=== PATIENT | female | born 1970 | race Caucasian/White ===

== ENCOUNTER 2024-12-22 19:22 | Emergency (ER) | payer MEDICAID, SELFPAY ==
[2024-12-22 19:30] VITALS: BP 168/109; PULSE 91; RESP 16; TEMP 36.8; O2SAT 96; BMI 32.3
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
[2024-12-22 19:53] VITALS: BP 172/115; PULSE 91; RESP 16; TEMP 36.8; O2SAT 97
--- NOTE | 2024-12-22 20:39 | PC.NURSE ---
Patient taken to CT via gurney.
[2024-12-22 21:12] VITALS: BP 171/102; PULSE 92; RESP 16; TEMP 36.6; O2SAT 99
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
[2024-12-22] MEDS: LIDOCAINE 1% W/EPI 1:100K 20 ML VIAL INFL (23:55)
[2024-12-23] MEDS: ACETAMINOPHEN 325 MG TABLET 650 MG PO (00:10)
[2024-12-23 00:23] VITALS: BP 154/89; PULSE 89; RESP 17; TEMP 36.7; O2SAT 100
== END 2024-12-23 00:48 | disposition home or self-care (01) ==
PROVIDERS: Emergency Provider Emergency Medicine
DX: S01.01XA Laceration without foreign body of scalp, initial encounter (principal); S06.0X0A Concussion without loss of consciousness, initial encounter; S19.9XXA Unspecified injury of neck, initial encounter; Y09 Assault by unspecified means
CPT/HCPCS: 12004; 70450; 72125; 99284; J3490; A9270